=== PATIENT | female | born 1995 | race Caucasian/White ===

== ENCOUNTER 2017-09-04 13:50 | Emergency (ER) | payer MEDICAID, SELFPAY ==
[2017-09-04] MEDS ORDERED: Ondansetron ODT 4 MG TAB ONE (15:11)
[2017-09-04 15:40] LABS: #Eosinphils 0.3 thou/uL (0.0-0.7); #Monocytes 0.7 thou/uL (0.11-0.59); #Neutrophils 6.2 thou/uL (1.40-6.50); %Basophils 0.4 % (0.0-1.0); %Eosinophils 3.5 % (0.0-10.0); %Lymphocytes 21.9 % (21.0-51.0); %Monocytes 7.8 % (0.0-10.0); Mean Platelet Volume 6.9 fL (7.4-10.4); White Blood Cell (WBC) Count 9.3 thou/uL (4.8-10.8)
[2017-09-04 15:59] LABS: ALT (SGPT) 19 U/L (8-55); AST (SGOT) 19 U/L (5-34); Alkaline Phosphatase 51 U/L (40-150); Anion Gap 12 mmol/L (10-20); BUN (Urea Nitrogen) 12 mg/dL (7.0-18.7); Bilirubin, Total 0.3 mg/dL (0.2-1.2); Calc. Creatinine Clearance 0 mL/min (70-130); Calcium 10.3 mg/dL (7.8-10.44); Carbon Dioxide 26 mmol/L (22-29); Chloride 103 mmol/L (98-107); Estimated GFR-MDRD Greater than 90; Globulin 3.1 g/dL (2.4-3.5); Protein, Total 7.7 g/dL (6.0-8.3)
== END 2017-09-04 17:00 | disposition left against medical advice (07) ==
LOC: ERS 13:50
DX: Z53.21 Procedure and treatment not carried out due to patient leaving prior to being seen by health care provider (principal)
CPT/HCPCS: 36415; 80053; 85025; 93005; Q0162

== ENCOUNTER 2017-11-16 15:04 | Emergency (ER) | payer MEDICAID, OTHER ==
[2017-11-16 15:34] LABS: #Eosinphils 0.2 thou/uL (0.0-0.7); #Lymphocytes 1.1 thou/uL (1.20-3.40); #Monocytes 1.3 thou/uL (0.11-0.59); #Neutrophils 13.5 thou/uL (1.40-6.50); %Basophils 0.3 % (0.0-1.0); %Eosinophils 1.1 % (0.0-10.0); %Lymphocytes 6.7 % (21.0-51.0); %Neutrophils 83.9 % (42.0-75.0); Hemoglobin 13.6 g/dL (12.0-16.0); Mean Corpuscular HGB CONC 34.8 g/dL (32.0-36.0); Mean Corpuscular Hemoglobin 29.8 pg (27.0-31.0); Mean Corpuscular Volume 85.4 fl (81.0-99.0); Mean Platelet Volume 6.7 fL (7.4-10.4); Platelet Count 271 thou/uL (130-400); RBC Distribution Width 12.4 % (11.5-14.5); Red Blood Cell (RBC) Count 4.56 mill/uL (4.20-5.40); White Blood Cell (WBC) Count 16.1 thou/uL (4.8-10.8)
[2017-11-16 15:50] LABS: Pregnancy Test - Urine (BHCG) POSITIVE (Negative)
[2017-11-16 15:51] LABS: Pregu Control Background? CLEAR/WHITE (CLR/WHITE); Pregu Control Bar Appear? YES (CONTROL BAR); Specific Gravity 1.031 (1.002-1.036)
[2017-11-16 15:52] LABS: Bilirubin Small (Negative); Blood, Urine Negative (Negative); Clarity TURBID (Clear); Glucose, Urine (Dipstick) Negative (Negative); Leukocyte Moderate (Negative); Nitrite Negative (Negative); Protein, Urine (Dipstick) 30 mg/dL (Neg-Trace); Urobilinogen 0.2 mg/dL (0.2-1.0)
[2017-11-16 15:56] LABS: Bacteria/HPF 4+ HPF (None Seen); Squamous Epithelial 21-50 HPF (0-3)
[2017-11-16 15:58] LABS: Pathc Cast-AUWi Flag 2.57 (0-2.49)
[2017-11-16 15:59] LABS: ALT (SGPT) 14 U/L (8-55); AST (SGOT) 17 U/L (5-34); Albumin 4.2 g/dL (3.5-5.0); Alkaline Phosphatase 48 U/L (40-150); Anion Gap 16 mmol/L (10-20); BUN (Urea Nitrogen) 6 mg/dL (7.0-18.7); Bilirubin, Total 0.6 mg/dL (0.2-1.2); Calc. Creatinine Clearance 0 mL/min (70-130); Calcium 9.5 mg/dL (7.8-10.44); Carbon Dioxide 17 mmol/L (22-29); Chloride 104 mmol/L (98-107); Estimated GFR-MDRD Greater than 90; Globulin 3.2 g/dL (2.4-3.5); Glucose 82 mg/dL (70-105); Lipase 19 U/L (8-78); Potassium 3.8 mmol/L (3.5-5.1); Protein, Total 7.4 g/dL (6.0-8.3); Sodium 133 mmol/L (136-145)
[2017-11-16 16:08] LABS: RBC/HPF 0-3 HPF (0-3)
[2017-11-16 16:09] LABS: Other Casts/LPF None Seen LPF (0-3 Hyaline)
[2017-11-16] MEDS ORDERED: Ondansetron HCl/PF 4 MG/2 ML Vial ONE ×2 (16:37→18:48)
[2017-11-16] MEDS ORDERED: Azithromycin 250 MG TAB ONE (17:30)
[2017-11-16 18:38] LABS: Bilirubin Negative (Negative); Blood, Urine Negative (Negative); Clarity CLEAR (Clear); Glucose, Urine (Dipstick) Negative (Negative); Leukocyte Negative (Negative); Nitrite Negative (Negative); Protein, Urine (Dipstick) 30 mg/dL (Neg-Trace); Specific Gravity, Urine 1.029 (1.002-1.036)
[2017-11-16 18:40] LABS: Bacteria/HPF None Seen HPF (None Seen); RBC/HPF 0-3 HPF (0-3); WBC/HPF 0-3 HPF (0-3)
[2017-11-16 18:41] LABS: Hyaline Casts/LPF 7-10 HYALINE CAST LPF (0-3 Hyaline); Pathc Cast-AUWi Flag 4.47 (0-2.49)
[2017-11-18 01:02] LABS: Chlamydia by PCR Not Detected (NotDetected); GC by PCR Not Detected (NotDetected)
== END 2017-11-16 19:19 | disposition home or self-care (01) ==
LOC: ERS 15:04
DX: O21.0 Mild hyperemesis gravidarum (principal); O99.342 Other mental disorders complicating pregnancy, second trimester; F41.9 Anxiety disorder, unspecified; F31.9 Bipolar disorder, unspecified; F90.9 Attention-deficit hyperactivity disorder, unspecified type; F43.10 Post-traumatic stress disorder, unspecified; O99.332 Smoking (tobacco) complicating pregnancy, second trimester; Z3A.19 19 weeks gestation of pregnancy
CPT/HCPCS: 51701; 80053; 81003; 81015; 81025; 83690; 85025; 87480; 87491; 87510; 87591; 87660; 94760; 96361; 96374; 96375; 96376; A4353; J0696; J2405

== ENCOUNTER 2018-03-06 17:35 | Day surgery (SDC) | payer OTHER ==
[2018-03-06 18:11] VITALS: BP 132/70; TEMP 99.3; BMI 39.1
[2018-03-06 19:20] LABS: Bilirubin Negative (Negative); Blood, Urine Negative (Negative); Clarity CLEAR (Clear); Glucose, Urine (Dipstick) Negative (Negative); Leukocyte Negative (Negative); Nitrite Negative (Negative); Protein, Urine (Dipstick) Negative (Neg-Trace); Specific Gravity, Urine 1.024 (1.002-1.036); Urobilinogen 0.2 mg/dL (0.2-1.0); pH, Urine 6.5 (5.0-9.0)
[2018-03-06 19:22] LABS: Bacteria/HPF None Seen HPF (None Seen); WBC/HPF 0-3 HPF (0-3)
[2018-03-06 19:26] LABS: Hyaline Casts/LPF 0-3 HYALINE CAST LPF (0-3 Hyaline); RBC/HPF None Seen HPF (0-3)
--- NOTE | 2018-03-06 23:55 | PRG ---
DATE OF SERVICE: 03/06/2018 PRIMARY OB: Dr. Morris. CHIEF COMPLAINT: Vaginal discharge. HISTORY OF PRESENT ILLNESS: The patient is a 22-year-old G2, P1 female with an intrauterine pregnanc y at 34 weeks and 6 days who is presenting to Labor and Delivery with concerns that she may have a se xually transmitted infection. The patient's partner who is in drug rehabilitation currently has had other sexual partners and the patient is worried that she may have contracted something she reports t hat she has had several days of increased vaginal discharge that she reports as white and thick. She has also been under the weather in recent days with a cough and headache and what she believes is pi nk eye. The patient denies fever, denies chest pain, shortness of breath, nausea, vomiting, diarrhea , constipation, any new rashes, hip problems or knee problems, muscle weakness. She does have the va ginal discharge as stated. Denies any bleeding and is reporting urgency of urination. PAST MEDICAL HISTORY: Seizures, off medications. PAST SURGICAL HISTORY: She had some sort of axillary in surgery for removal of something as a child. ALLERGIES: IODINE and IODINE CONTAINING PRODUCTS. MEDICATIONS: vitamins. SOCIAL HISTORY: The patient admits to tobacco use, but she quit about 4 months ago. OB LABS: Unavailable. REVIEW OF SYSTEMS: Per HPI. PHYSICAL EXAMINATION: VITAL SIGNS: Blood pressure 132/70, heart rate of 88, respiratory rate of 18, satting 97% on room ai r, temperature 99.3. GENERAL: She appears to be in no acute distress. She is alert and oriented, cooperative and pleasan t to interact with. HEENT: Head is normocephalic, atraumatic. Her right eye appears watery and a little red. HEART: Regular rate and rhythm. LUNGS: Clear to auscultation bilaterally. ABDOMEN: Soft, nontender. EXTREMITIES: Nontender, nonedematous. PELVIC: Vulva is without masses, lesions or erythema. Vagina is moist with a thick white discharge. There is a lot of mucus over her cervix. Cervix does not appear to be erythematous. heart tracing shows a baseline in the 120s with moderate long-term variability 15 x 15 accelera tions, no decelerations. Tocometer is absent with contractions. LABWORK: Urinalysis was negative for bacteria, nitrites, leukocyte esterase, or white blood cells. The [facility] results are showing negative for Trichomonas, negative for yeast, positive for bacterial vag inosis. Of note, this is the patient's third positive [facility] test for Gardnerella in the last 6 months at this location alone. ASSESSMENT AND PLAN: The patient is a 22-year-old female followed by Dr. Morris at [facility] ith an intrauterine at 34 weeks and 6 days who presented with concerns of sexually transmit elvia infections due to increased discharge last couple of days. The patient appears to have a chronic or recurrent bacterial vaginosis, this will be her third treatment in the last 6 months. I have giv en the patient the results, GC and chlamydia are still pending. HIV and RPR have been done in the month with her routine OB testing. Given the patient's recurrent testing for Gardnerella, the rec ommendation has been given for the patient to go on a Women's probiotic and effort to repopulate and keep the healthy bacteria populated in her vaginal wilfredo or vaginal canal. Recommended one with 50 b illing and her more bacteria per serving, I have given her an example of one she can purchase at a [facility]. The patient has expressed understanding. She will be discharged with metronidazole 500 m g to be taken twice a day for 7 days with the information about the probiotic. She has been given pr eterm labor precautions and encouraged to follow up with her primary OB as scheduled.
[2018-03-10 00:49] LABS: Chlamydia by PCR Not Detected (NotDetected); GC by PCR Not Detected (NotDetected)
== END 2018-03-06 20:15 | disposition home or self-care (01) ==
LOC: L&D/OP 17:35
PROVIDERS: ATTEND Obstetrics & Gynecology
DX: O23.593 Infection of other part of genital tract in pregnancy, third trimester (principal); O98.313 Other infections with a predominantly sexual mode of transmission complicating pregnancy, third trimester; Z3A.34 34 weeks gestation of pregnancy; Z87.891 Personal history of nicotine dependence; Z91.041 Radiographic dye allergy status
CPT/HCPCS: 81001; 87480; 87491; 87510; 87591; 87660; 99284; A4353

== ENCOUNTER 2018-09-30 14:34 | Emergency (ER) | payer OTHER, SELFPAY | END 2018-09-30 15:50 | disposition home or self-care (01) | LOC: ERS 14:34 | DX: R59.0 Localized enlarged lymph nodes (principal); F17.200 Nicotine dependence, unspecified, uncomplicated; F41.9 Anxiety disorder, unspecified; F31.9 Bipolar disorder, unspecified; F25.9 Schizoaffective disorder, unspecified; F90.9 Attention-deficit hyperactivity disorder, unspecified type; F43.10 Post-traumatic stress disorder, unspecified | CPT/HCPCS: 99282 ==